=== PATIENT | female | born 1980 | race Caucasian/White ===

== ENCOUNTER 2022-09-17 16:26 | Emergency (ER) | payer SELFPAY ==
[2022-09-17 16:28] VITALS: BP 159/100; PULSE 90; RESP 18; TEMP 36.2; O2SAT 99; BMI 30.7
--- NOTE | 2022-09-17 16:44 | EDS_ITS ---
HPI History of Present Illness Chief Complaint: Back Narrative Narrative: 42-year-old female presenting with back pain. Its left lumbar paraspinal pain as well as gluteal pain going down the back of her leg into her hamstrings. She states she remembers injuring it while exercising. She started having this pain 5 weeks ago. She was seen by her PCP this week and given a shot of Kenalog. She states that the pain has been severe PFSH PFS Medical History Back pain Home Medications hydrocodone-acetaminophen 5-325mg 5mg-325mg 1 tab PO Q6H PRN PRN Pain 3 days #12 TABLETS 09/17/22 [Rx Last Taken Unknown] Allergy/AdvReac Type Severity Reaction Status Date / Time Sulfa (Sulfonamide AdvReac PT UNSURE Verified 09/17/22 16:30 Antibiotics) OF REACTION Social History Smoking Status: Former smoker ROS ROS ED Constitutional Constitutional ED: Denies chills, fever(s) or sweats Eyes Eyes: Denies blurry vision or change in vision ENT ENT ED: Denies ear pain or sore throat Cardiovascular Cardiovascular: Denies chest pain, palpitations or racing heartbeat Respiratory/Chest Respiratory/Chest: Denies cough, dyspnea or sputum Gastrointestinal Gastrointestinal: Denies abdominal pain, constipation, diarrhea, nausea or vomiting Genitourinary Genitourinary ED: Denies dysuria, hematuria or urinary frequency Musculoskeletal Musculoskeletal: Reports back pain and other Details: Left gluteal pain ; Denies arthralgias, myalgias or neck pain Integumentary Denies abscess, Abrasions or rash Neurologic Neurologic: Denies headache(s), paresthesias or weakness Psychiatric Psychiatric: Denies anxiety, depression, suicidal ideation or suicidal thoughts Endocrine Endocrinology: Denies polydipsia or polyuria EXAM Physical Exam Const Vital Signs: 09/17/22 16:28 Temperature 97.2 F L Temperature Source Temporal Pulse Rate 90 Respiratory Rate 18 Blood Pressure 159/100 H Blood Pressure Mean 119 Pulse Ox 99 Oxygen Delivery Method Room Air Positive well nourished General Appearance ED: NAD Eyes PERRL and EOMs intact bilaterally Resp normal respiratory effort and clear to auscultation bilaterally Cardio regular rate and regular rhythm GI Palpation: tender Back/Spine Back/Spine Narrative: Left lumbar paraspinal muscular tenderness adjacent to L5. There is some tenderness in the gluteal region. Straight leg raise test is negative and I can get this up to almost 70 degrees. With internal rotation of the hip she does get a lot of pain in the lateral thigh and in the gluteal region. Neuro oriented x3 Skin no rashes or lesions noted MDM MDM MDM Narrative Medical decision making narrative: Patient presenting with lumbar back pain and gluteal pain. She was diagnosed with sciatica. She is been on muscle relaxers, NSAIDs and this has been ongoing for a while now. No loss of bladder or bowel control. No saddle anesthesia. No evidence of cauda equina syndrome. Patient has not had any imaging done. I did do some basic labs because she dated she felt weird after receiving 70 steroids. CBC and BMP were normal. Urinalysis negative for infection. I tried to give the patient morphine but she refused she was willing to take Toradol. When I came back into the room to reevaluate her she stated her pain was not improving. I again offered her morphine but she does not like the way that makes her feel. I obtained an x-ray of the lumbar spine which on my interp retation shows degenerative changes without any acute findings. The radiologist interprets this and agrees. She is willing to take a prescription for [place] at home. I told her that she should still follow-up with her primary care physician to ensure resolution. Return precautions discussed. Impression: 1. Back pain 2. Radiculopathy Lab Data Labs: Laboratory Results - last 24 hr 09/17/22 09/17/22 09/17/22 16:55 16:55 17:55 WBC 10.5 RBC 4.75 Hgb 13.7 Hct 41.4 MCV 87.2 MCH 28.8 MCHC 33.1 RDW Std Deviation 41.2 RDW Coeff of Juan Miguel 13.2 Plt Count 247 MPV 11.0 Immature Gran % (Auto) 0.600 Neut % (Auto) 64.4 Lymph % (Auto) 25.3 Edgar % (Auto) 8.2 Eos % (Auto) 0.8 Baso % (Auto) 0.7 Absolute Neuts (auto) 6.8 Absolute Lymphs (auto) 2.67 Nucleated RBC % 0 Differential Comment SCANNED Sodium 137 Potassium 4.2 Chloride 106 Carbon Dioxide 25.0 Anion Gap 6 BUN 21 H Creatinine 0.91 Estim Creat Clear Calc 57.26 Est GFR (MDRD) Af Amer 86 Est GFR (MDRD) Non-Af 71 BUN/Creatinine Ratio 23.0 H Glucose 104 Calcium 8.9 Total Bilirubin 0.40 AST 26 ALT 23 Alkaline Phosphatase 48 Total Protein 7.5 Albumin 3.7 Globulin 3.8 Albumin/Globulin Ratio 1.0 Urine Color Yellow Urine Clarity Cloudy Urine pH 7.0 Ur Specific [place] 1.015 Urine Protein Negative Urine Glucose (UA) Normal Urine Ketones Negative Urine Occult Blood 10 H Urine Nitrite Negative Urine Bilirubin Negative Urine Urobilinogen Normal Ur Leukocyte Esterase 500 H Urine RBC 0-5 SEEN Urine WBC 25-50 SEEN Ur Squamous Epith Cells 0-5 SEEN Amorphous Sediment 3+ PHOS Urine Bacteria RARE Urine Mucus 0 SEEN Radiography Diagnostic Testing: Clinical Impression(s) from Imaging Studies Lumbar Spine X-Ray 09/17/22 17:15 IMPRESSION: Mild lumbar spine degenerative change. Electronically Signed: Talib Linder MD at 17:31 EDT , Discharge Plan Triage Chief Complaint: Back ED Provider: Eulogio Sharp Dx/Rx/DC Orders Instructions: Sciatica Exercise, ED Sciatica Prescriptions: New hydrocodone-acetaminophen 5-325 mg tablet 1 tab PO Q6H PRN PRN (Reason: Pain) 3 Days Qty: 12 0RF Primary Care Provider: Gerry Don NP Referrals: Gerry Don NP, [facility] ATTEND[facility]-C [Primary Care Provider] - Disposition Disposition: Home, Self Care Discharge Date/Time: 09/17/22 19:08
[2022-09-17 17:04] LABS: Absolute Lymphocyte Count 2.67 X10^3/uL (0.83-4.51); Absolute Neutrophil Count 6.8 X10^3/uL (2.0-7.7); Basophil# 0.07 X10^3/uL; Basophil% 0.7 % (0-1); Eosinophil# 0.08 X10^3/uL; Eosinophils% 0.8 % (0-5); Hematocrit 41.4 % (37-47); Hemoglobin 13.7 g/dL (12.0-15.0); Lymphocyte # 2.67 X10^3/ul (0.83-4.51); Lymphocyte % 25.3 % (19-41); Mean Corp Hgb Conc 33.1 g/dL (32-36); Mean Corpuscular Hgb 28.8 pg (27.0-32.0); Mean Corpuscular Volume 87.2 fL (81-99); Monocyte# 0.86 X10^3/uL; Monocyte% 8.2 % (0-10); NRBC Flagged by Analyzer 0 % (0-5); Neutrophil % 64.4 % (47-70); POSITIVE COUNT YES; Platelet Count 247 K/mm3 (150-450); RBC Distribution Width CV 13.2 % (11.6-14.6); RBC Distribution Width SD 41.2 fl (35.1-43.9); Red Blood Count 4.75 M/mm3 (4.2-5.4); White Blood Count 10.5 K/mm3 (4.4-11.0)
[2022-09-17 17:05] LABS: Differential Indicated SCAN CRITERIA MET
[2022-09-17] MEDS: Ketorolac 15 MG/ML Vial IV (17:06)
--- NOTE | 2022-09-17 17:15 | RAD_ITS ---
INDICATION: Back pain EXAMINATION/TECHNIQUE: X-RAY - XR Spine Lumbar 2 or 3 Views COMPARISON: None FINDINGS: VERTEBRAE: Preserved vertebral body height. No fracture. No spondylolisthesis. Preservation of the normal lumbar lordosis. No significant facet arthropathy. DISCS: Mild endplate disease at all levels. No significant disc space loss. INCLUDED ABDOMEN: Included bowel gas pattern is non-obstructive. RAD/Lumbar Spine 2 or 3 Views IMPRESSION: Mild lumbar spine degenerative change. Electronically Signed: Talib Linder MD at 17:31 EDT ,
[2022-09-17 17:33] LABS: Differential Comment SCANNED
[2022-09-17 17:45] LABS: AST(SGOT) 26 U/L (15-37); Alanine Aminotransfer ALT/SGPT 23 U/L (13-56); Albumin, Serum 3.7 g/dL (3.2-5.0); Alkaline Phosphatase 48 U/L (45-117); Anion Gap 6 (5-15); BUN 21 mg/dL (7-18); Calcium,Total 8.9 mg/dL (8.5-10.1); Chloride 106 mmol/L (98-107); Creatinine, Serum 0.91 mg/dL (0.55-1.02); EST Glomerular Filtration Rate 71 mL/min (>60); Est Glom Filt Rate - Afr Amer 86 mL/min (>60); Estimated Creatinine Clearance 57.26 ml/min; Globulin 3.8 g/dL (2.2-4.2); Glucose 104 mg/dL (74-106); Potassium 4.2 mmol/L (3.5-5.1); Protein, Total 7.5 g/dL (6.4-8.2); Sodium Level 137 mmol/L (136-145)
[2022-09-17 18:19] LABS: Mucous, Urine 0 SEEN /hpf (<or=2+)
[2022-09-17 18:26] LABS: Color, Urine Yellow (Yellow); Glucose, Dipstick Normal (Normal); Ketone-Dipstick Negative (Negative); Leukocyte Esterase-Dipstick 500 /ul (Negative); Nitrite-Dipstick Negative (Negative); Occult Blood-Urine 10 /ul (Negative); Protein-Dipstick Negative (Negative); Specific Gravity, Urine 1.015 (1.002-1.030); Urine Bilirubin Dipstick Negative (Negative); Urine Clarity Cloudy (Clear); Urine Urobilinogen Normal (Normal)
[2022-09-17 19:01] LABS: Bacteria RARE /hpf (None Seen); Red Blood Cells-Urine 0-5 SEEN /hpf (0-5); Squamous Epithelial Cells - UA 0-5 SEEN /hpf (5-10); White Blood Cells 25-50 SEEN /hpf (0-5)
[2022-09-17 19:02] LABS: Amorphous Sediment 3+ PHOS
== END 2022-09-17 19:08 | disposition home or self-care (01) ==
PROVIDERS: Emergency Provider Student in an Organized Health Care Education/Training Program; PCP Nurse Practitioner Family; Visit Provider Student in an Organized Health Care Education/Training Program
DX: M51.16 Intervertebral disc disorders with radiculopathy, lumbar region (principal); Z87.891 Personal history of nicotine dependence
CPT/HCPCS: 72100; 80053; 81001; 85025; 96374; 99284; A4216; J2405